=== PATIENT | female | born 1930 | race Caucasian/White ===

== ENCOUNTER 2017-04-03 15:22 | Emergency (ER) | payer MEDICARE, OTHER ==
[2017-04-03] MEDS ORDERED: 0.9 % SODIUM CHLORIDE 1,000 ML IV ONE (15:24)
--- NOTE | 2017-04-03 15:24 | ED Physician Documentation ---
General Adult - HISTORIAN Historian: patient - HPI Stated Complaint: dizzy Chief Complaint: Nausea,Vomiting,Diarrhea Onset: days ago (3) Timing: still present Severity: moderate Further Comments: yes (she states three days ago she went to her PCP for dizziness she was given meds for inner ear and she states since she has continued to have nasuea and vomiting. Denies a fever. She has a headache but denies any head injury) Last known Well Code/Unknown Code: Unknown - ROS CONST: recent illness. denies: fever, weakness EYES/ENT: denies: problems with vision, nasal drainage CVS/RESP: denies: chest pain, shortness of breath, cough GI/: vomiting, nausea. denies: abdominal pain, diarrhea MS/SKIN/LYMPH: denies: rash NEURO/PSYCH: headache, dizziness. denies: fainting - PAST HX Past History: other Surgeries/Procedures: other Immunizations: referred to PCP Allergies/Adverse Reactions: Allergies Allergy/AdvReac Type Severity Reaction Status Date / Time No Known Drug Allergies Allergy Unverified 02/10/13 12:35 Home Medications: Ambulatory Orders Medication Instructions Recorded Aspirin [Aspirin Ec] 81 mg PO DAILY u2 02/10/13 Cholecalciferol (Vitamin D3) 1,000 unit PO DAILY u2 02/10/13 [Vitamin D] Insulin Aspart [Novolog] 3 - 4 unit SQ ACBID 02/10/13 Isosorbide Mononitrate [Imdur] 30 mg PO DAILY u2 02/10/13 Losartan/Hydrochlorothiazide 1 each PO DAILY u2 02/10/13 [Losartan-Hctz 100-12.5 Mg Tab] Nitroglycerin 0.4 mg SL PRN PRN u2 02/10/13 Omeprazole 40 mg PO DAILY 02/10/13 Simvastatin 20 mg PO QOD u2 02/10/13 - SOCIAL HX Smoking History: non-smoker Alcohol Use: none Drug Use: none - FAMILY HX Family History: No - REVIEWED ASSESSMENTS Nursing Assessment Reviewed: Yes Vitals Reviewed: Yes Progress - Progress Progress: 1554: pt reports decrease in nausea and headache. She states "maybe I can sleep now" DG 1649: She states her ear is still painful. She is taking antibiotic. Meds prescribed DG General Adult Physical Exam - PHYSICAL EXAM GENERAL APPEARANCE: no distress EENT: RIVERA NÚÑEZ's nml RESPIRATORY: no resp distress, chest non-tender, breath sounds normal CVS: reg rate & rhythm, heart sounds normal, equal pulses, no murmur ABDOMEN: soft, normal bowel sounds SKIN: warm/dry, normal color EXTREMITIES: non-tender, normal range of motion NEURO: oriented X3, CN's nml as tested, motor nml, sensation nml, mood/affect nml Discharge Clincal Impression: Otitis Qualifiers: Laterality: right Qualified Code(s): H66.91 - Otitis media, unspecified, right ear Referrals: Blanca Puri MD [Primary Care Provider] - 2 Days Additional Instructions: OTC meds for pain Warm pack continue amoxicillin and flonase Ciprodex 3 drops in right ear three times per day x 7 Medrol dose pack as directed Zofran 4 mg every 8 hours as needed for nausea Increase fluids Change position slowly Condition: Stable Disposition: 01 HOME, SELF-CARE Decision to Admit: NO Date of Decison to Admit: 04/03/17 Decision Time: 16:46
[2017-04-03] MEDS ORDERED: (BACK ORDERED; DO NOT ORDER) DIAZEPAM 5 MG/ML DISP.SYRIN IVP ONE (15:32)
[2017-04-03 15:41] LABS: BASOPHILS % 0.5 (0.0-1.5); EOSINOPHILS % 2.1 % (0.0-6.8); MEAN CORPUSCULAR HEMOGLOBIN 28.8 pg (28.0-34.0); MEAN CORPUSCULAR VOLUME 90.7 fl (80.0-100.0); MONOCYTES % 5.8 % (0.0-11.0); NEUTROPHILS # 6.3 # k/uL (1.4-7.7)
[2017-04-03 15:59] LABS: eGFR (African) > 60; eGFR (Non-African) > 60
[2017-04-03 17:36] VITALS: BP 137/53
== END 2017-04-03 17:10 | disposition home or self-care (01) ==
LOC: ED 15:22
DX: H66.91 Otitis media, unspecified, right ear (principal); R11.2 Nausea with vomiting, unspecified
CPT/HCPCS: 80053; 85025; 96361; 96374; 99283; J3360; J7030; S1016